=== PATIENT | male | born 1985 | race Caucasian/White ===

== ENCOUNTER 2021-07-14 11:38 | Emergency (ER) | payer MEDICAID ==
[~2021-07-14] VITALS: Ht 177.8 cm; Wt 74.4 kg
[2021-07-14 12:03] VITALS: BP 126/69
--- NOTE | 2021-07-14 12:05 | NUR ---
TO ER BED 7, C/O COLDS/HEADACHE AND SORETHROAT ,ATTENDED A CONCERT 3 DAYS AGO". AAOX4, BREATHING EVEN AND NON LABORED
[2021-07-14] MEDS ORDERED: IBUPROFEN 600 MG TABLET PO ONE (12:30)
[2021-07-14] MEDS ORDERED: IBUPROFEN 600 MG TABLET ONE (12:46)
--- NOTE | 2021-07-14 12:56 | NUR ---
COVID SWAB DONE AND SENT TO LAB
[2021-07-14] MEDS ORDERED: CETI1TAB9 PO (13:35)
== END 2021-07-14 14:28 | disposition home or self-care (01) ==
LOC: ER 11:55
DX: J02.9 Acute pharyngitis, unspecified (principal); R09.82 Postnasal drip; Z20.822 Contact with and (suspected) exposure to COVID-19
CPT/HCPCS: 87070; 87426; 87880; 99283; C9803; 86403-TC